=== PATIENT | female | born 1990 | race Caucasian/White ===

== ENCOUNTER 2022-04-26 15:47 | Emergency (ER) | payer OTHER, MEDICAID ==
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
[2022-04-26 17:26] VITALS: BP 125/71
== END 2022-04-26 17:26 | disposition home or self-care (01) ==
LOC: ED 15:47
DX: S20.212A Contusion of left front wall of thorax, initial encounter (principal); V43.52XA Car driver injured in collision with other type car in traffic accident, initial encounter
CPT/HCPCS: 99282; 99283